=== PATIENT | female | born 1945 | race Hispanic/Latino ===

== ENCOUNTER → 2017-07-03 | Outpatient (CLI) | payer OTHER, SELFPAY | LOC: BICRAD 13:26 | PROVIDERS: ATTEND Internal Medicine | DX: R06.00 Dyspnea, unspecified (principal); R91.8 Other nonspecific abnormal finding of lung field | CPT/HCPCS: 71046 ==

== ENCOUNTER 2018-01-02 13:26 | Outpatient (CLI) | payer MEDICARE, SELFPAY ==
--- NOTE | 2018-01-02 14:05 | RAD ---
CHEST 2 VIEWS: HISTORY: Dyspnea. COMPARISON: 07/03/17. FINDINGS: Cardiac silhouette and pulmonary vasculature unremarkable. Minimal linear atelectasis left upper lob e. Mediastinum is midline. No confluent airspace consolidation, pneumothorax, or pleural fluid are apparent. IMPRESSION: Minimal linear atelectasis. No active cardiopulmonary abnormalities are evident. POS: [facility]
== END 2018-01-02 13:27 | disposition home or self-care (01) ==
LOC: RAD 13:26
PROVIDERS: ATTEND Internal Medicine
DX: R06.00 Dyspnea, unspecified (principal); J98.11 Atelectasis
CPT/HCPCS: 71046

== ENCOUNTER 2018-11-13 16:15 | Outpatient (CLI) | payer MEDICARE ==
--- NOTE | 2018-11-13 16:49 | BD ---
"PRELIMINARY REPORT" Exam: DEXA Bone Density 11/13/2018 COMPARISON: None HISTORY: Postmenopausal female undergoing screening for osteoporosis. Lumbar Spine: BMD (g/cm2) T-SCORE L1 0.574 -3.8 L2 0.591 -4.0 L3 0.592 -4.5 L4 0.599 -4.2 L1-L4 0.590 -4.2 Femoral Neck: 0.494 -3.2 Total Femur: 0.712 -1.9 FRAX/WHO fracture risk assessment tool was not reported as some T-Scores are at or below -2.5. Impression: Diffuse osteoporosis of the lumbar spine and femoral neck, correlating with a high associated risk fo r fracture. Transcribed Date/Time: 11/13/2018 5:38 PM
== END 2018-11-13 16:16 | disposition home or self-care (01) ==
LOC: BICMAMMO 16:15
PROVIDERS: ATTEND Internal Medicine Rheumatology
DX: M81.0 Age-related osteoporosis without current pathological fracture (principal)
CPT/HCPCS: 77080

== ENCOUNTER 2019-04-28 18:26 | Observation (INO) | payer MEDICARE ==
[2019-04-28 18:52] LABS: #Basophils 0.1 thou/uL (0.0-0.2); #Eosinphils 0.1 thou/uL (0.0-0.7); #Lymphocytes 4.4 thou/uL (1.20-3.40); #Monocytes 1.3 thou/uL (0.11-0.59); #Neutrophils 4.8 thou/uL (1.40-6.50); %Basophils 0.6 % (0.0-1.0); %Eosinophils 1.1 % (0.0-10.0); %Lymphocytes 41.3 % (21.0-51.0); %Monocytes 12.2 % (0.0-10.0); %Neutrophils 44.8 % (42.0-75.0); Hemoglobin 14.7 g/dL (12.0-16.0); Mean Corpuscular HGB CONC 33.8 g/dL (32.0-36.0); Mean Corpuscular Hemoglobin 31.6 pg (27.0-31.0); Mean Corpuscular Volume 93.4 fL (78.0-98.0); Mean Platelet Volume 6.4 fL (7.4-10.4); Platelet Count 454 thou/uL (130-400); RBC Distribution Width 12.2 % (11.5-14.5); Red Blood Cell (RBC) Count 4.66 mill/uL (4.20-5.40); White Blood Cell (WBC) Count 10.6 thou/uL (4.8-10.8)
[2019-04-28] MEDS ORDERED: Nitroglycerin 2% Ointment 1 INCH/1 GM Packet ONE (18:57)
[2019-04-28] MEDS ORDERED: Aspirin Chewable 81 MG TAB ONE (18:57)
--- NOTE | 2019-04-28 19:11 | RAD ---
RADIOGRAPH CHEST 1 VIEW: DATE: 04/28/2019 HISTORY: 73-year-old female with chest pain FINDINGS: There are no airspace densities, pulmonary edema, pneumothorax, or cardiomegaly. The lateral costophr enic angles are sharp. IMPRESSION: No acute cardiopulmonary findings.
[2019-04-28 19:14] LABS: ALT (SGPT) 21 U/L (8-55); AST (SGOT) 16 U/L (5-34); Albumin 4.4 g/dL (3.4-4.8); Alkaline Phosphatase 64 U/L (40-110); Anion Gap 13 mmol/L (10-20); BUN (Urea Nitrogen) 16 mg/dL (9.8-20.1); Bilirubin, Total 0.5 mg/dL (0.2-1.2); CK (CPK) 40 U/L (29-168); Calc. Creatinine Clearance 0 mL/min (70-130); Calcium 9.3 mg/dL (7.8-10.44); Carbon Dioxide 25 mmol/L (23-31); Chloride 105 mmol/L (98-107); Estimated GFR-MDRD 82; Globulin 3.9 g/dL (2.4-3.5); Glucose 88 mg/dL (83-110); Potassium 3.5 mmol/L (3.5-5.1); Protein, Total 8.3 g/dL (6.0-8.3); Sodium 139 mmol/L (136-145)
--- NOTE | 2019-04-28 19:30 | PDOC.FPRHP ---
- History of Present Illness Chief Complaint: chest pain History of Present Illness: Pt is 73 yo F, [place]-speaking, who first had symptoms of chest pain starting a week ago, going up to her left neck and across the back of her head. Had some vomiting in [place] all day long while she was visiting her 90-yo mother. Returned to [facility] because she was having the chest pains and vomiting. Did not take any medications at home to help. Has not had this type of chest pain previously. Last time she felt bad was in 2017 when she was hospitalized for PNA. Has been feeling very tired and more lethargic lately. Denies fevers, sweating. Has home meds w/ her which include: alendronate 70mg once weekly metformin 500 bid atorvastatin 10 qhs carvedilol 3.125 bid drops for glaucoma: dorzolamide, timolol, brimonidine ED Course: Nitro paste, 500 mL NS, and ASA 324 mg - Allergies/Adverse Reactions Allergies Allergy/AdvReac Type Severity Reaction Status Date / Time No Known Allergies Allergy Verified 04/28/19 20:53 - Home Medications Medication Instructions Recorded Confirmed Type Brimonidine Tartrate [Alphagan 1 drop EA EYE BID 01/12/17 04/28/19 History 0.2% Ophth Soln] Dorzolamide HCl [Dorzolamide HCl 1 drop EA EYE TID 01/12/17 04/28/19 History 2% Ophth Soln] Timolol Maleate [Timolol Maleate 1 drop EA EYE BID 01/12/17 04/28/19 History 0.5% Ophth SolN] metFORMIN [Glucophage] 500 mg PO BID-WM 01/12/17 04/28/19 History Alendronate Sodium [Fosamax] 70 mg PO Q7D 04/28/19 04/28/19 History Atorvastatin Calcium [Lipitor] 10 mg PO HS 04/28/19 04/28/19 History Carvedilol [Coreg] 3.125 mg PO BID 04/28/19 04/28/19 History - History PMHx: - Diabetes - Glaucoma - HTN PSHx: eye surgery in [place] recently, thoracentesis for PNA in 2017 FHx: - Denies Social: - Recently returned from [place] - Denies smoking, drinking, drugs - Review of Systems General: reports: fatigue. denies: fever/chills, weight/appetite/sleep changes Eyes: denies: vision changes Respiratory: denies: cough, shortness of breath Cardiovascular: reports: chest pain. denies: palpitation, edema Gastrointestinal: denies: nausea, vomiting, diarrhea Genitourinary: denies: dysuria Skin: denies: rashes Musculoskeletal: denies: pain Neurological: denies: syncope - Vital signs BP: 191/101, Pulse: 73, Resp: 23, O2 sat: 100 on RA, Time: 04/28/2019 18:48. - Physical Exam Constitutional: NAD, awake, alert and oriented (does appear tired.) HEENT: normocephalic and atraumatic, conjunctiva clear, no scleral icterus Neck: trachea midline Heart: RRR, normal S1/S2, no murmurs/rubs/gallops, no edema Lungs: CTAB, no respiratory distress, no wheezing Abdomen: soft, non-tender, bowel sounds present Neurological: no focal deficit Skin: no rash/lesions Heme/Lymphatic: no unusual bruising or bleeding Psychiatric: normal mood and affect, intact recent and remote memory FMR H&P: Results - Labs Result Diagrams: 04/29/19 03:37 04/29/19 03:37 Lab results: WBC 10.6 thou/uL (4.8-10.8) 04/28/19 18:40 Hgb 14.7 g/dL (12.0-16.0) 04/28/19 18:40 Hct 43.5 % (36.0-47.0) 04/28/19 18:40 MCV 93.4 fL (78.0-98.0) 04/28/19 18:40 Plt Count 454 thou/uL (130-400) H 04/28/19 18:40 Neutrophils % 44.8 % (42.0-75.0) 04/28/19 18:40 Sodium 139 mmol/L (136-145) 04/28/19 18:40 Potassium 3.5 mmol/L (3.5-5.1) 04/28/19 18:40 Chloride 105 mmol/L (98-107) 04/28/19 18:40 Carbon Dioxide 25 mmol/L (23-31) 04/28/19 18:40 BUN 16 mg/dL (9.8-20.1) 04/28/19 18:40 Creatinine 0.70 mg/dL (0.6-1.1) 04/28/19 18:40 Glucose 88 mg/dL (83-110) 04/28/19 18:40 Calcium 9.3 mg/dL (7.8-10.44) 04/28/19 18:40 Total Bilirubin 0.5 mg/dL (0.2-1.2) 04/28/19 18:40 AST 16 U/L (5-34) 04/28/19 18:40 ALT 21 U/L (8-55) 04/28/19 18:40 Alkaline Phosphatase 64 U/L (40-110) 04/28/19 18:40 Creatine Kinase 40 U/L (29-168) 04/28/19 18:40 Serum Total Protein 8.3 g/dL (6.0-8.3) 04/28/19 18:40 Albumin 4.4 g/dL (3.4-4.8) 04/28/19 18:40 - EKG Interpretation EKG: LBBB on EKG, appears new from EKG in 2017 - Radiology Interpretation Chest x-ray Status: report reviewed by me (negative) FMR H&P: A/P - Problem List (1) Chest pain Current Visit: Yes Status: Acute Code(s): R07.9 - CHEST PAIN, UNSPECIFIED (2) Type 2 diabetes mellitus Current Visit: Yes Status: Acute (3) HTN (hypertension) Current Visit: Yes Status: Acute Code(s): I10 - ESSENTIAL (PRIMARY) HYPERTENSION (4) Glaucoma Current Visit: No Status: Chronic Code(s): H40.9 - UNSPECIFIED GLAUCOMA Qualifiers: Glaucoma type: unspecified Laterality: left Qualified Code(s): H40.9 - Unspecified glaucoma - Plan 73-yo F admitted to tele obs for: Typical chest pain - chest pain w/ typical radiation pattern and improving w/ nitro - EKG showing new LBBB - Trop neg, will trend - TSH, Magnesium, phosphorus, A1C, FLP for risk stratification - continuous telemetry - NM stress test in AM - Prophylactic LVX - Will give GI cocktail to see if pt's chest pain improves to rule out/assess for acid reflux symptoms contributing to chest pain. T2DM - continue metformin HTN - hold home carvedilol in preparation for stress test in AM Glaucoma - May continue home eye drops Osteoporosis - takes alendronate weekly, will hold for now. Code: FULL VTE ppx: LVX GI ppx: none Fluids: MIVF Diet: NPO at midnight for stress test Raine Ray MD PGY1 Disposition/LOS: Admit to telemetry observation FMR H&P: Upper Level - Pertinent history 73 yo f with pmhx of diabetes, htn, hld presents with left sided chest pain with radiation to bilateral neck and right arm, with associated shortness of breath, n/v, headache as well. No prior cardiac hx. Vitals: 98F, 68, 14, 97%RA, 180/82 PE: NAD no edema RRR CTAB abdomen soft nondistended nontender Trop <.01 X 2 TSH 12H hba1c 5.5 platelets 454 ddimer .37 CXR: No acute findings EKG: LBBB A/P: Atypical chest pain-with several risk factors and a new lbbb, giving her a heart score of 6. Will admit to tele obs and order a stress test in the am. Will trend troponins. If chest pain returns, will get another EKG. Nitro prn. Type 2 diabetes- -hba1c 5.5, will restart home medications and monitor HTN- -restart home medications and monitor HLD- -restart home medications and monitor N/V- -zofran prn Jonah Haile MD, PGY-3 - Plan Date/Time: 04/28/191926 Addendum - Attending - Attending Attestation Date/Time: 04/29/19 4006 I personally evaluated the patient and discussed the management with Dr. Ray /Mic I agree with the History, Examination, Assessment and Plan documented above with any addition or exceptions noted below. See my event note for details.
[2019-04-28] MEDS ORDERED: Ondansetron ODT 4 MG TAB PO PRN (20:03)
[2019-04-28] MEDS ORDERED: Ondansetron PF 4 MG/2 ML Vial IVP PRN (20:03)
[2019-04-28] MEDS ORDERED: Acetaminophen 325 MG TAB PO PRN (20:03)
[2019-04-28] MEDS ORDERED: Nitroglycerin 0.4 MG TAB (25 Tab Bottle) PO PRN (20:03)
[2019-04-28 20:26] LABS: Phosphorus 3.2 mg/dL (2.3-4.7)
--- NOTE | 2019-04-28 21:05 | PDOC.EVN ---
Addendum - Attending - Attending Attestation Date/Time: 04/28/192043 I personally evaluated the patient and discussed the management with Drs. Ray/Mic. I agree with the History, Examination, Assessment and Plan documented in their H &P with any addition or exceptions noted below. 73 yo HF with PMH of HTN, DM2. Presents with 1 wk hx of intermittent chest pain that radiates to right arm, nausea and vomiting. Sx started while she was in [place] visiting family. States pain last 2-3 hours and has spontaneously resolved before. She had return of sx this evening and family took her to an urgent care. EKG at urgent care showed LBBB that was still present on repeat at [facility]. Nitro and ASA in ER relieved sx. Prior EKG from 2017 did not show LBBB. Labs unremarkable. CXR reviewed and unremarkable. Will try GI cocktail to see if this improves her symptoms. DDx includes ACS vs Letty issa tear from N/V. Given risk factors and new LBBB, trend trop. NM stress test in the morning. It has been >6 months since last A1c in clinic so repeat today. Further risk stratify with FLP. Check Mg and TSH. Obs, Tele.
[2019-04-28 22:06] LABS: Hemoglobin A1c 5.5 % (4.0-6.0)
[2019-04-28 22:24] LABS: Troponin I Less than 0.010 ng/mL (< 0.028)
[2019-04-29] MEDS ORDERED: Lidocaine 2% Viscous Solution 20 ML, Aluminum & Magnesium Hydroxide 30 ML, Donnatal Eli... SSW SCH (02:15)
[2019-04-29] MEDS ORDERED: Enoxaparin Sodium 40 MG/0.4 ML SYRINGE SC SCH ×2 (02:30→09:00)
[2019-04-29 04:38] LABS: #Eosinphils 0.1 thou/uL (0.0-0.7); #Lymphocytes 3.7 thou/uL (1.20-3.40); #Monocytes 1.1 thou/uL (0.11-0.59); #Neutrophils 4.1 thou/uL (1.40-6.50); %Basophils 0.4 % (0.0-1.0); %Eosinophils 1.6 % (0.0-10.0); %Lymphocytes 40.9 % (21.0-51.0); %Monocytes 12.3 % (0.0-10.0); %Neutrophils 44.9 % (42.0-75.0); Hemoglobin 12.7 g/dL (12.0-16.0); Mean Corpuscular HGB CONC 33.2 g/dL (32.0-36.0); Mean Corpuscular Hemoglobin 30.8 pg (27.0-31.0); Mean Corpuscular Volume 92.8 fL (78.0-98.0); Mean Platelet Volume 6.6 fL (7.4-10.4); Platelet Count 372 thou/uL (130-400); RBC Distribution Width 12.3 % (11.5-14.5); Red Blood Cell (RBC) Count 4.13 mill/uL (4.20-5.40); White Blood Cell (WBC) Count 9.1 thou/uL (4.8-10.8)
[2019-04-29 05:01] LABS: Anion Gap 11 mmol/L (10-20); BUN (Urea Nitrogen) 13 mg/dL (9.8-20.1); Calc. Creatinine Clearance 77 mL/min (70-130); Calcium 8.6 mg/dL (7.8-10.44); Carbon Dioxide 24 mmol/L (23-31); Cardiac Risk 3.4 (Less than 4.5); Chloride 109 mmol/L (98-107); Cholesterol 131 mg/dl (< 200 Desired); Estimated GFR-MDRD Greater than 90; Glucose 82 mg/dL (83-110); HDL Cholesterol 39 mg/dL (>60 Neg Risk); LDL Cholesterol, Calculated 70 mg/dL; Potassium 3.9 mmol/L (3.5-5.1); Sodium 140 mmol/L (136-145); Triglycerides 108 mg/dL (Less than 150)
[2019-04-29] MEDS ORDERED: hydrALAZINE 20 MG/ML VIAL SLOW IVP PRN (06:10)
--- NOTE | 2019-04-29 06:10 | PDOC.FM ---
- Subjective Subjective: Pt has no chest pain this AM. Denies nausea, vomiting, or diaphoresis. - Objective MAR Reviewed: Yes Vital Signs & Weight: Vital Signs (12 hours) Temp Pulse Resp BP Pulse Ox 04/29/19 03:45 98.4 F 67 19 143/70 H 97 04/28/19 20:40 98.0 F 68 14 180/82 H 97 Weight Weight 55.656 kg Result Diagrams: 04/29/19 03:37 04/29/19 03:37 Phys Exam - Physical Examination Constitutional: NAD HEENT: moist MMs Respiratory: no wheezing, clear to auscultation bilateral Cardiovascular: RRR, no significant murmur Gastrointestinal: soft, non-tender, no distention, positive bowel sounds Musculoskeletal: no edema, pulses present Neurological: moves all 4 limbs Psychiatric: A&O x 3 Skin: normal turgor Dx/Plan (1) Chest pain Code(s): R07.9 - CHEST PAIN, UNSPECIFIED Status: Acute (2) HTN (hypertension) Code(s): I10 - ESSENTIAL (PRIMARY) HYPERTENSION Status: Acute (3) Type 2 diabetes mellitus Status: Acute - Plan Plan: This is a 73 yo female with a pmh of DM2, HTN Typical chest pain -Negative troponins x3 -Stress test this AM -FLP normal for pt with these comorbidities DM2 -Continue home metformin HTN -Hold carvedilol for stress test -PRN hydralazine for elevated BP Osteoporosis -Holding home alendronate Glaucoma -Continue home eye drops Subclinical hypothyroidism -TSH 12, Free T2 0.92 -Pt will need replacement and follow up after discharge -Starting pt on 50mcg of levothyroxine after stress test, plan to titrate in outpt setting Addendum - Attending - Attending Attestation Date/Time: 04/29/19 1231 I personally evaluated the patient and discussed the management with Dr. Lira. I agree with the History, Examination, Assessment and Plan documented above with any addition or exceptions noted below. Has a ? new LBBB (I cannot find chart despite repeated attempts). Will likely d /w cards p stress, which she was in during my evaluation.
[2019-04-29] MEDS ORDERED: metFORMIN 500 MG TAB PO SCH (08:00)
[2019-04-29] MEDS ORDERED: Prevnar 13-Val Conj/PF 0.5 ML SYRINGE IM ONE (09:00)
[2019-04-29] MEDS ORDERED: FLU VACC TS2019-20(65YR UP)/PF 180 MCG/0.5 ML SYRINGE IM ONE (09:00)
[2019-04-29] MEDS ORDERED: Brimonidine Tartrate 0.2% Ophth Soln 5 ml Bottle EA EYE SCH (09:00)
[2019-04-29] MEDS: Dorzolamide HCl 2% Ophth Soln 10 ml Bottle EA EYE SCH ×2 (09:00→14:39)
--- NOTE | 2019-04-29 13:04 | NM ---
NUCLEAR MEDICINE CARDIAC STRESS WITH EF AND WALL MOTION: HISTORY: Chest pain. COMPARISON: None. TECHNIQUE: Patient was ministered 31.90 mCi of technetium 99m sestamibi for stress imaging and 10.10 mCi of tech netium 99m sestamibi for rest imaging. Cardiac gating was performed. FINDINGS: Homogeneous distribution of the radiotracer in the left ventricle. No evidence of reversibility. No f ixed defect. TID is 0.95. End-diastolic volume is 59 mL. End systolic volume is 20 mL. Cardiac gating: Normal wall motion and thickening. 65% ejection fraction. IMPRESSION: 1. No reversibility or fixed defect. 2. 65% ejection fraction. Transcribed Date/Time: 04/29/2019 2:31 PM
[2019-04-29] MEDS ORDERED: ADENOSINE 60 MG/20 ML VIAL ONE (15:33)
[2019-04-29 16:25] VITALS: BP 184/85; TEMP 98.5
[2019-04-29] MEDS ORDERED: Atorvastatin Calcium 10 MG TAB PO SCH (21:00)
--- NOTE | 2019-04-30 02:05 | DIS ---
DATE OF ADMISSION: 04/28/2019 DATE OF DISCHARGE: 04/29/2019 ADMITTING ATTENDING: Flako Snow MD. DISCHARGING ATTENDING: Neftali Reyes MD RESIDENT: Donald Lira DO CONSULTS: None. PROCEDURES PERFORMED: 1. Probable chest x-ray shows no acute cardiopulmonary findings. 2. Nuclear medicine cardiac stress test shows there were no reversibility or fixed defects. EF of 65%. PRIMARY DIAGNOSIS: 1. Typical chest pain with ischemia ruled out, likely representing gastroesophageal reflux disease. 2. Subtherapeutic hypothyroidism. SECONDARY DIAGNOSES: Type 2 diabetes, hypertension, glaucoma, osteoporosis. DISCHARGE MEDICATIONS: 1. Levothyroxine 50 mcg p.o. daily. 2. Fosamax 70 mg p.o. q.7 days. 3. Atorvastatin 10 mg p.o. at bedtime. 4. Brimonidine drops, one drop each eye b.i.d. 5. Carvedilol 3.125 mg p.o. b.i.d. 6. Dorzolamide drops, one drop each eye t.i.d. 7. Metformin 500 mg p.o. b.i.d. 8. Timolol eye drops, one per each eye b.i.d. DISCONTINUED MEDICATIONS: None. BRIEF HISTORY OF PRESENT ILLNESS/HOSPITAL COURSE: This is a 73-year-old female , who presented to the ER with past medical history as above with chest pain that been going on, associated with radiation to the neck and the arm, and some nausea. In addition to labs being negative and troponin negative x3, the patient did have a new left bundle-branch block with negative Sgarbosa criteria. The patient's TSH was elevated at 12. The patient had nuclear stress test showing no reversible or fixed defects with EF of 65%. Discussed case with Dr. Coronel, Cardiology, whether or not to be consulted inpatient or outpatient. Dr. Coronel elected to see patient in the outpatient setting. ER precautions given to the patient, as well as need for referral to Cardiology. The patient will likely need follow up on her TSH to assess appropriate therapy. DISPOSITION: Stable. DISCHARGE INSTRUCTIONS: 1. Location: Home. 2. Diet: Heart healthy, diabetic. 3. Activity: As tolerated. 4. Followup: Follow up with Dr. Reyes in 7 days, Dr. Coronel in 2 to 3 weeks. Job ID: [id number] [facility]
== END 2019-04-29 16:49 | disposition home or self-care (01) ==
LOC: ERS 18:26 → 2SW 19:20
PROVIDERS: ADMIT Family Medicine; ATTEND Family Medicine
DX: R07.89 Other chest pain (principal); E03.9 Hypothyroidism, unspecified; I10 Essential (primary) hypertension; E11.9 Type 2 diabetes mellitus without complications; H40.9 Unspecified glaucoma; M81.0 Age-related osteoporosis without current pathological fracture; E78.5 Hyperlipidemia, unspecified; Z79.84 Long term (current) use of oral hypoglycemic drugs; Z79.899 Other long term (current) drug therapy
CPT/HCPCS: 71045; 78452; 80048; 80061; 82550; 83036; 83735; 83880; 84100; 84439; 84484 ×3; 85025; 85379; 93005; 93017; 94760; 96372; A9500; G0378 ×2; 36415; 80053; 84443; J0153; J1650

== ENCOUNTER 2019-05-23 16:30 | Outpatient (CLI) | payer MEDICARE ==
--- NOTE | 2019-05-23 16:48 | RAD ---
Frontal and lateral radiograph thoracic spine: 05/23/2019 COMPARISON: None HISTORY: Cough and upper back pain FINDINGS: The thoracic pedicles appear intact on frontal imaging. Lateral imaging demonstrates normal vertebral body height and alignment. No anterolisthesis or retrolisthesis. Mild multilevel mid thoracic spine disc space narrowing and anterior osteophyte formation. No acute osseous abnormality. IMPRESSION: No acute fracture seen.
== END 2019-05-23 16:31 | disposition home or self-care (01) ==
LOC: BICRAD 16:30
PROVIDERS: ATTEND Physician Assistant
DX: M54.9 Dorsalgia, unspecified (principal); M81.0 Age-related osteoporosis without current pathological fracture
CPT/HCPCS: 72070

== ENCOUNTER 2020-01-03 15:00 | Outpatient (CLI) | payer MEDICARE ==
--- NOTE | 2020-01-03 15:26 | BD ---
EXAM: Bone densitometry using DEXA HISTORY: 74 yo female. Screening for postmenopausal osteoporosis FINDINGS: L1--bone mineral density 0.611 g/sq cm; T score -3.4 ; Z score -1.5 L2--bone mineral density 0.586 g/sq cm; T score -4.0 ; Z score -1.8 L3--bone mineral density 0.578 g/sq cm; T score -4.6 ; Z score -2.3 L4--bone mineral density 0.640 g/sq cm; T score -3.8 ; Z score -1.8 Total L1-L4--bone mineral density 0.604 g/sq cm; T score -4.0 ; Z score -1.8 Left femoral neck--bone mineral density0.47; T score -3.3 ; Z score -1.3 Total proximal left femur--bone mineral density 0.702; T score -2.0 ; Z score -0.3 There has been an interval improvement of 2.5% in the BMD of the lumbar spine and a reduction of 1. 5% in the BMD of the proximal femur since the previous study of 11/13/2018. IMPRESSION: Osteoporosis
== END 2020-01-03 15:01 | disposition home or self-care (01) ==
LOC: BICMAMMO 15:00
PROVIDERS: ATTEND Internal Medicine Rheumatology
DX: M81.0 Age-related osteoporosis without current pathological fracture (principal)
CPT/HCPCS: 77080

== ENCOUNTER 2021-07-30 07:49 | Outpatient (CLI) | payer MEDICARE | END 2021-07-30 07:50 | disposition home or self-care (01) | LOC: BICMAMMO 07:49 | PROVIDERS: ATTEND Internal Medicine Rheumatology | DX: M81.0 Age-related osteoporosis without current pathological fracture (principal); Z79.899 Other long term (current) drug therapy | CPT/HCPCS: 77080 ==

== ENCOUNTER 2022-09-09 09:56 | Observation (INO) | payer MEDICARE ==
[2022-09-09 11:22] LABS: #Eosinphils 0.2 thou/uL (0.0-0.7); #Lymphocytes 2.2 thou/uL (1.20-3.40); #Monocytes 0.4 thou/uL (0.11-0.59); #Neutrophils 4.7 thou/uL (1.40-6.50); %Basophils 0.1 % (0.0-1.0); %Eosinophils 2.5 % (0.0-10.0); %Monocytes 5.3 % (0.0-10.0); %Neutrophils 63.2 % (42.0-75.0); Hemoglobin 14.3 g/dL (12.0-16.0); Mean Corpuscular HGB CONC 33.6 g/dL (32.0-36.0); Mean Corpuscular Hemoglobin 32.5 pg (27.0-31.0); Mean Corpuscular Volume 96.9 fl (78.0-98.0); Mean Platelet Volume 7.2 fL (7.4-10.4); Platelet Count 285 10x3/uL (130-400); RBC Distribution Width 11.2 % (11.5-14.5); Red Blood Cell (RBC) Count 4.41 mill/uL (4.20-5.40); White Blood Cell (WBC) Count 7.5 10x3/uL (4.8-10.8)
[2022-09-09 11:46] LABS: ALT (SGPT) 13 U/L (8-55); AST (SGOT) 20 U/L (5-34); Albumin 4.5 g/dL (3.4-4.8); Alkaline Phosphatase 62 U/L (40-110); Anion Gap 14 mmol/L (10-20); BUN (Urea Nitrogen) 9 mg/dL (9.8-20.1); Calc. Creatinine Clearance 0 mL/min (70-130); Calcium 9.7 mg/dL (7.8-10.44); Carbon Dioxide 24 mmol/L (23-31); Chloride 107 mmol/L (98-107); Estimated GFR 92; Globulin 3.7 g/dL (2.4-3.5); Glucose 84 mg/dL (83-110); Potassium 4.3 mmol/L (3.5-5.1); Protein, Total 8.2 g/dL (5.8-8.1); Sodium 141 mmol/L (136-145)
[2022-09-09] MEDS ORDERED: Iopamidol-370 76% 500 ML MDV (1 ML CHARGE) ONE (11:47)
[2022-09-09 12:06] LABS: CKMB 1.5 ng/mL (0-6.6)
[2022-09-09] MEDS ORDERED: Aspirin Chewable 81 MG TAB ONE (14:08)
[2022-09-09] MEDS ORDERED: Nitroglycerin 2% Ointment 1 INCH/1 GM Packet ONE (14:08)
[2022-09-09 15:28] LABS: CK (CPK) 77 U/L (29-168); Lipase 21 U/L (8-78)
[2022-09-09] MEDS ORDERED: hydrALAZINE 20 MG/ML VIAL ONE (15:30)
[2022-09-09] MEDS ORDERED: Acetaminophen 500 MG TAB ONE (15:30)
[2022-09-09] MEDS ORDERED: hydrALAZINE 20 MG/ML VIAL SLOW IVP PRN (16:13)
[2022-09-09] MEDS ORDERED: Lisinopril 20 MG TAB PO SCH (16:15)
[2022-09-09] MEDS ORDERED: FLU VACC QS2022-23(65YR UP)/PF 240 MCG/0.7 ML SYRINGE IM ONE (16:30)
[2022-09-09 16:42] VITALS: BMI 20.3
[2022-09-09] MEDS ORDERED: Alendronate Sodium 70 mg Tablet PO SCH (16:45)
[2022-09-09 17:22] LABS: Cardiac Risk 2.8 (Less than 4.5)
[2022-09-09 17:27] LABS: Troponin I 0.033 ng/mL (< 0.028)
[2022-09-09 17:43] LABS: Hemoglobin A1c 5.2 % (4.0-6.0)
[2022-09-09 20:25] LABS: Troponin I 0.029 ng/mL (< 0.028)
[2022-09-09] MEDS ORDERED: Carvedilol 6.25 MG TAB PO SCH (21:00)
[2022-09-09] MEDS ORDERED: Atorvastatin Calcium 10 MG TAB PO SCH (21:00)
[2022-09-09] MEDS: Acetaminophen 325 MG TAB PO PRN (21:40)
[2022-09-09] MEDS: Timolol 0.5% Ophth Soln 5 ml Bottle EA EYE SCH (21:42)
[2022-09-09] MEDS: Dorzolamide HCl 2% Ophth Soln 10 ml Bottle EA EYE SCH (21:43)
[2022-09-09] MEDS: Brimonidine Tartrate 0.2% Ophth Soln 5 ml Bottle EA EYE SCH (21:44)
[2022-09-10 05:29] LABS: #Basophils 0.1 thou/uL (0.0-0.2); #Eosinphils 0.2 thou/uL (0.0-0.7); #Lymphocytes 3.2 thou/uL (1.20-3.40); #Monocytes 0.6 thou/uL (0.11-0.59); #Neutrophils 3.6 thou/uL (1.40-6.50); %Basophils 0.7 % (0.0-1.0); %Eosinophils 2.4 % (0.0-10.0); %Lymphocytes 41.8 % (21.0-51.0); %Monocytes 8.4 % (0.0-10.0); %Neutrophils 46.7 % (42.0-75.0); Hemoglobin 13.1 g/dL (12.0-16.0); Mean Corpuscular HGB CONC 34.7 g/dL (32.0-36.0); Mean Corpuscular Hemoglobin 33.1 pg (27.0-31.0); Mean Corpuscular Volume 95.6 fl (78.0-98.0); Mean Platelet Volume 7.3 fL (7.4-10.4); Platelet Count 258 10x3/uL (130-400); RBC Distribution Width 11.3 % (11.5-14.5); Red Blood Cell (RBC) Count 3.96 mill/uL (4.20-5.40); White Blood Cell (WBC) Count 7.6 10x3/uL (4.8-10.8)
[2022-09-10 05:50] LABS: Anion Gap 12 mmol/L (10-20); BUN (Urea Nitrogen) 19 mg/dL (9.8-20.1); Calc. Creatinine Clearance 60 mL/min (70-130); Calcium 9.3 mg/dL (7.8-10.44); Carbon Dioxide 23 mmol/L (23-31); Chloride 110 mmol/L (98-107); Estimated GFR 91; Glucose 95 mg/dL (83-110); Potassium 3.7 mmol/L (3.5-5.1); Sodium 141 mmol/L (136-145)
[2022-09-10] MEDS: Timolol 0.5% Ophth Soln 5 ml Bottle EA EYE SCH (08:20)
[2022-09-10] MEDS: Brimonidine Tartrate 0.2% Ophth Soln 5 ml Bottle EA EYE SCH ×2 (08:21→11:18)
[2022-09-10] MEDS ORDERED: Lisinopril 20 MG TAB PO SCH (09:00)
[2022-09-10] MEDS ORDERED: Lisinopril 10 MG TAB PO SCH (09:00)
[2022-09-10] MEDS ORDERED: Regadenoson 0.4 MG/5 ML SYRINGE ONE (09:58)
[2022-09-10] MEDS: Acetaminophen 325 MG TAB PO PRN (11:22)
[2022-09-10] MEDS: Dorzolamide HCl 2% Ophth Soln 10 ml Bottle EA EYE SCH ×2 (11:23→15:13)
[2022-09-10 11:58] VITALS: BP 136/67; TEMP 97.5
== END 2022-09-10 16:55 | disposition home or self-care (01) ==
LOC: ERS 09:56 → 2SW 14:44
PROVIDERS: ADMIT Family Medicine; ATTEND Family Medicine
DX: I16.1 Hypertensive emergency (principal); R94.31 Abnormal electrocardiogram [ECG] [EKG]; E78.5 Hyperlipidemia, unspecified; I44.7 Left bundle-branch block, unspecified; M06.9 Rheumatoid arthritis, unspecified; M81.0 Age-related osteoporosis without current pathological fracture; H40.9 Unspecified glaucoma; E11.9 Type 2 diabetes mellitus without complications; Z79.84 Long term (current) use of oral hypoglycemic drugs; Z79.899 Other long term (current) drug therapy
CPT/HCPCS: 71045; 71275; 74177; 78452; 80048; 80061; 82550; 82553; 83036; 83690; 84484 ×2; 85025; 93005; 93017; 96372; 96374; 99285; A9500; G0378 ×3; J0360; 36415; 80053; 84443; J1650; J2785; Q9967

== ENCOUNTER 2022-09-28 08:14 | Outpatient (CLI) | payer MEDICARE | END 2022-09-28 08:15 | disposition home or self-care (01) | LOC: BICMAMMO 08:14 | PROVIDERS: ATTEND Emergency Medicine | DX: Z00.01 Encounter for general adult medical examination with abnormal findings (principal); M81.8 Other osteoporosis without current pathological fracture | CPT/HCPCS: 77080 ==

== ENCOUNTER 2023-05-19 08:51 | Outpatient (CLI) | payer MEDICARE | END 2023-05-19 08:52 | disposition home or self-care (01) | LOC: BICRAD 08:51 | PROVIDERS: ATTEND Emergency Medicine | DX: R05.3 Chronic cough (principal) | CPT/HCPCS: 71046 ==

== ENCOUNTER 2023-06-17 13:16 | Emergency (ER) | payer MEDICARE ==
[2023-06-17 13:58] LABS: #Monocytes 0.6 thou/uL (0.11-0.59); #Neutrophils 8.4 thou/uL (1.40-6.50); %Basophils 0.1 % (0.0-1.0); %Eosinophils 0.4 % (0.0-10.0); %Lymphocytes 16.3 % (21.0-51.0); %Monocytes 5.7 % (0.0-10.0); %Neutrophils 77.1 % (42.0-75.0); Hematocrit 40.2 % (36.0-47.0); Hemoglobin 13.5 g/dL (12.0-16.0); Mean Corpuscular HGB CONC 33.6 g/dL (32.0-36.0); Mean Corpuscular Hemoglobin 31.6 pg (27.0-31.0); Mean Corpuscular Volume 94.1 fl (78.0-98.0); Mean Platelet Volume 9.4 fL (7.4-10.4); Platelet Count 352 10x3/uL (130-400); Red Blood Cell (RBC) Count 4.27 mill/uL (4.20-5.40); White Blood Cell (WBC) Count 10.9 10x3/uL (4.8-10.8)
[2023-06-17 14:11] LABS: ALT (SGPT) 11 U/L (8-55); AST (SGOT) 19 U/L (5-34); Albumin 4.2 g/dL (3.4-4.8); Alkaline Phosphatase 58 U/L (40-110); Anion Gap 12 mmol/L (10-20); BUN (Urea Nitrogen) 12 mg/dL (9.8-20.1); Bilirubin, Total 0.7 mg/dL (0.2-1.2); Calc. Creatinine Clearance 0 mL/min (70-130); Calcium 9.1 mg/dL (7.8-10.44); Carbon Dioxide 25 mmol/L (23-31); Chloride 108 mmol/L (98-107); Estimated GFR 84; Globulin 3.9 g/dL (2.4-3.5); Glucose 143 mg/dL (83-110); Potassium 3.6 mmol/L (3.5-5.1); Protein, Total 8.1 g/dL (5.8-8.1); Sodium 141 mmol/L (136-145)
[2023-06-17 14:15] LABS: Troponin I 0.012 ng/mL (< 0.028)
[2023-06-17] MEDS ORDERED: Dexamethasone 10 MG/ML VIAL ONE (14:46)
== END 2023-06-17 15:00 | disposition home or self-care (01) ==
LOC: ERS 13:16
DX: R05.3 Chronic cough (principal); E11.9 Type 2 diabetes mellitus without complications; I10 Essential (primary) hypertension; M19.90 Unspecified osteoarthritis, unspecified site; Z79.899 Other long term (current) drug therapy
CPT/HCPCS: 36415; 71045; 80053; 83880; 84484; 85025; 93005; J1100

== ENCOUNTER 2023-11-28 21:58 | Observation (INO) | payer MEDICARE ==
[2023-11-28 23:15] LABS: #Basophils Less than 0.03 10x3/uL (0.0-0.2); %Basophils 0.2 % (0.0-1.0); %Eosinophils 1.2 % (0.0-10.0); %Lymphocytes 24.3 % (21.0-51.0); %Monocytes 8.4 % (0.0-10.0); %Neutrophils 65.7 % (42.0-75.0); Hematocrit 36.4 % (36.0-47.0); Hemoglobin 12.4 g/dL (12.0-16.0); Mean Corpuscular HGB CONC 34.1 g/dL (32.0-36.0); Mean Corpuscular Hemoglobin 31.9 pg (27.0-31.0); Mean Corpuscular Volume 93.6 fL (78.0-98.0); Mean Platelet Volume 9.1 fL (7.4-10.4); Platelet Count 320 10x3/uL (130-400); RBC Distribution Width 12.5 % (11.5-14.5); Red Blood Cell (RBC) Count 3.89 mill/uL (4.20-5.40)
[2023-11-28] MEDS ORDERED: Acetaminophen 500 MG TAB ONE ×2 (23:45→23:46)
[2023-11-28] MEDS ORDERED: diphenhydrAMINE 50 MG/ML VIAL ONE (23:45)
[2023-11-28] MEDS ORDERED: Metoclopramide HCl 10 MG (2 mL) VIAL ONE (23:45)
[2023-11-28 23:49] LABS: ALT (SGPT) 8 U/L (8-55); AST (SGOT) 21 U/L (5-34); Albumin 3.5 g/dL (3.4-4.8); Alkaline Phosphatase 79 U/L (40-110); Anion Gap 10 mmol/L (10-20); BUN (Urea Nitrogen) 14 mg/dL (9.8-20.1); Bilirubin, Total 0.6 mg/dL (0.2-1.2); Calc. Creatinine Clearance 0 mL/min (70-130); Calcium 9.4 mg/dL (7.8-10.44); Carbon Dioxide 22 mmol/L (23-31); Chloride 108 mmol/L (98-107); Estimated GFR 88; Glucose 100 mg/dL (83-110); Potassium 3.9 mmol/L (3.5-5.1); Protein, Total 8.5 g/dL (5.8-8.1)
[2023-11-28 23:53] LABS: Troponin I 0.013 ng/mL (< 0.028)
[2023-11-28 23:57] LABS: Sodium 136 mmol/L (136-145)
[2023-11-29] MEDS ORDERED: hydrALAZINE 20 MG/ML VIAL SLOW IVP PRN (02:08)
[2023-11-29] MEDS ORDERED: Naloxone HCl 0.4 mg/ml Vial IVP PRN (02:08)
[2023-11-29] MEDS ORDERED: Ondansetron PF 4 MG/2 ML Vial IVP PRN (02:08)
[2023-11-29] MEDS ORDERED: Ketorolac Tromethamine 30 MG (1 mL) VIAL ONE ×2 (02:31→08:46)
[2023-11-29] MEDS ORDERED: Cyclobenzaprine 10 MG TAB ONE ×2 (02:32→09:21)
[2023-11-29 04:27] LABS: #Basophils Less than 0.03 10x3/uL (0.0-0.2); %Basophils 0.2 % (0.0-1.0); %Eosinophils 0.9 % (0.0-10.0); %Lymphocytes 30.3 % (21.0-51.0); %Monocytes 8.3 % (0.0-10.0); %Neutrophils 60.1 % (42.0-75.0); Hematocrit 32.8 % (36.0-47.0); Hemoglobin 10.9 g/dL (12.0-16.0); Mean Corpuscular HGB CONC 33.2 g/dL (32.0-36.0); Mean Corpuscular Hemoglobin 31.1 pg (27.0-31.0); Mean Corpuscular Volume 93.7 fL (78.0-98.0); Mean Platelet Volume 9.4 fL (7.4-10.4); Platelet Count 293 10x3/uL (130-400); RBC Distribution Width 12.3 % (11.5-14.5)
[2023-11-29 04:50] LABS: ALT (SGPT) 10 U/L (8-55); AST (SGOT) 15 U/L (5-34); Albumin 2.9 g/dL (3.4-4.8); Alkaline Phosphatase 63 U/L (40-110); Anion Gap 12 mmol/L (10-20); BUN (Urea Nitrogen) 11 mg/dL (9.8-20.1); Bilirubin, Total 0.5 mg/dL (0.2-1.2); Calc. Creatinine Clearance 62 mL/min (70-130); Calcium 8.2 mg/dL (7.8-10.44); Carbon Dioxide 20 mmol/L (23-31); Chloride 111 mmol/L (98-107); Estimated GFR 92; Glucose 94 mg/dL (83-110); Potassium 3.6 mmol/L (3.5-5.1); Protein, Total 6.9 g/dL (5.8-8.1); Sodium 139 mmol/L (136-145)
[2023-11-29] MEDS: Acetaminophen 325 MG TAB PO SCH (05:05)
[2023-11-29] MEDS ORDERED: Acetaminophen 325 MG TAB ONE (05:36)
[2023-11-29] MEDS: Ketorolac Tromethamine 30 MG (1 mL) VIAL IVP SCH ×2 (06:00→09:17)
[2023-11-29] MEDS ORDERED: Enoxaparin 40 MG (0.4 mL) SYRINGE ONE (08:47)
[2023-11-29] MEDS: Enoxaparin 40 MG (0.4 mL) SYRINGE SC SCH (09:15)
[2023-11-29] MEDS: Cyclobenzaprine 10 MG TAB PO SCH (09:19)
[2023-11-29] MEDS ORDERED: Dexamethasone 10 MG/ML VIAL ONE (09:46)
[2023-11-29] MEDS ORDERED: Iopamidol-370 76% 500 ML MDV (1 ML CHARGE) ONE (11:46)
[2023-11-29 17:27] VITALS: BMI 22.0
[2023-11-30 04:44] LABS: #Basophils Less than 0.03 10x3/uL (0.0-0.2); #Eosinphils Less than 0.03 10x3/uL (0.0-0.7); %Basophils 0.1 % (0.0-1.0); %Lymphocytes 21.1 % (21.0-51.0); %Monocytes 6.8 % (0.0-10.0); %Neutrophils 71.8 % (42.0-75.0); Hematocrit 31.3 % (36.0-47.0); Hemoglobin 10.6 g/dL (12.0-16.0); Mean Corpuscular HGB CONC 33.9 g/dL (32.0-36.0); Mean Corpuscular Volume 94.6 fL (78.0-98.0); Mean Platelet Volume 9.3 fL (7.4-10.4); Platelet Count 297 10x3/uL (130-400); RBC Distribution Width 12.1 % (11.5-14.5); Red Blood Cell (RBC) Count 3.31 mill/uL (4.20-5.40)
[2023-11-30 05:11] LABS: ALT (SGPT) 10 U/L (8-55); AST (SGOT) 17 U/L (5-34); Albumin 2.9 g/dL (3.4-4.8); Alkaline Phosphatase 64 U/L (40-110); Anion Gap 15 mmol/L (10-20); BUN (Urea Nitrogen) 16 mg/dL (9.8-20.1); Bilirubin, Total 0.5 mg/dL (0.2-1.2); Calc. Creatinine Clearance 64 mL/min (70-130); Calcium 8.4 mg/dL (7.8-10.44); Carbon Dioxide 18 mmol/L (23-31); Chloride 113 mmol/L (98-107); Estimated GFR 92; Glucose 103 mg/dL (83-110); Potassium 3.9 mmol/L (3.5-5.1); Protein, Total 6.9 g/dL (5.8-8.1); Sodium 142 mmol/L (136-145)
[2023-11-30 08:17] VITALS: TEMP 97.9
[2023-11-30 11:27] VITALS: BP 167/69
== END 2023-11-30 11:13 | disposition home or self-care (01) ==
LOC: ERS 21:58 → ERHOLD 11-29 01:57 → 2SE 11-29 13:39
PROVIDERS: ADMIT Family Medicine; ATTEND Family Medicine
DX: G44.201 Tension-type headache, unspecified, intractable (principal); M54.2 Cervicalgia; M48.00 Spinal stenosis, site unspecified; M06.9 Rheumatoid arthritis, unspecified; M81.0 Age-related osteoporosis without current pathological fracture; J45.909 Unspecified asthma, uncomplicated; I10 Essential (primary) hypertension; E11.9 Type 2 diabetes mellitus without complications; E78.5 Hyperlipidemia, unspecified; I44.7 Left bundle-branch block, unspecified; Z79.899 Other long term (current) drug therapy
CPT/HCPCS: 70496; 70498; 80053 ×2; 84484; 85025 ×2; 93005; 96365; 96372 ×2; 96375; 96376 ×2; 97116; 99285; G0378 ×3; J1100; J1200; J1650 ×2; J1885 ×2; J2765; Q9967; 36415; 84443

== ENCOUNTER 2023-12-11 11:25 | Outpatient (CLI) | payer MEDICARE | END 2023-12-11 11:26 | disposition home or self-care (01) | LOC: BICRAD 11:25 | PROVIDERS: ATTEND Internal Medicine Rheumatology | DX: M54.2 Cervicalgia (principal); M81.0 Age-related osteoporosis without current pathological fracture; M47.812 Spondylosis without myelopathy or radiculopathy, cervical region | CPT/HCPCS: 72052 ==

== ENCOUNTER 2023-12-26 13:31 | Outpatient (CLI) | payer MEDICARE | END 2023-12-26 13:32 | disposition home or self-care (01) | LOC: BICMAMMO 13:31 | PROVIDERS: ATTEND Internal Medicine Rheumatology | DX: M81.0 Age-related osteoporosis without current pathological fracture (principal) | CPT/HCPCS: 77080 ==

== ENCOUNTER 2025-04-23 15:17 | Outpatient (CLI) | payer MEDICARE | END 2025-04-23 15:18 | disposition home or self-care (01) | LOC: BICMAMMO 15:17 | PROVIDERS: ATTEND Internal Medicine Rheumatology | DX: M81.0 Age-related osteoporosis without current pathological fracture (principal) | CPT/HCPCS: 77080 ==